=== PATIENT | male | born 1975 | race Caucasian/White ===

== ENCOUNTER 2020-07-15 20:54 | Emergency (ER) | payer SELFPAY ==
[~2020-07-15] VITALS: Ht 167.6 cm; Wt 84.0 kg
[2020-07-15 20:57] VITALS: BP 168/101
== END 2020-07-15 22:53 | disposition left against medical advice (07) ==
LOC: ER 20:54
DX: Z53.21 Procedure and treatment not carried out due to patient leaving prior to being seen by health care provider (principal)

== ENCOUNTER 2020-07-15 22:51 | Emergency (ER) | payer SELFPAY ==
[~2020-07-15] VITALS: Ht 172.7 cm; Wt 82.0 kg
[2020-07-15 22:54] VITALS: BP 150/100
[2020-07-15] MEDS ORDERED: CHLORDIAZEPOXIDE 25MG CAPSULE PO ONE (23:30)
== END 2020-07-15 23:33 | disposition left against medical advice (07) ==
LOC: ER 22:51
DX: S80.12XA Contusion of left lower leg, initial encounter (principal); W18.30XA Fall on same level, unspecified, initial encounter; F10.129 Alcohol abuse with intoxication, unspecified; Y90.9 Presence of alcohol in blood, level not specified; Y93.89 Activity, other specified; Y92.89 Other specified places as the place of occurrence of the external cause; Y99.8 Other external cause status
CPT/HCPCS: 99283